=== PATIENT | female | born 1960 | race Caucasian/White ===

== ENCOUNTER 2023-12-18 21:32 | Emergency (ER) | payer SELFPAY ==
[2023-12-18] VITALS (8 sets, daily range): BP systolic 102–160; BP diastolic 72–102; PULSE 86–102; RESP 16–20; TEMP 36.5–36.6; O2SAT 92–100
--- NOTE | ~2023-12-18 | XR_ITS ---
EXAMINATION: XR elbow LT 2V DATE: 12/18/2023 21:56 INDICATION: Left elbow deformity post fall TECHNIQUE: Anteroposterior, two oblique and lateral views of the left elbow were obtained. COMPARISON: None. FINDINGS: Posterior left elbow dislocation with 15 degree varus angulation of the forearm. There is an impacted fracture at the radial neck. With 30 degree tilt of the articular surface of the radial head relativ e to the axis of the radial diaphysis. No other fractures identified. IMPRESSION: 1. Left elbow fracture dislocation. 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
--- NOTE | ~2023-12-18 | XR_ITS ---
Left elbow Technique: AP, oblique, and lateral views were obtained. Clinical History: Postreduction to COMPARISON: 12/18/2023 at 10:44 PM Findings: There is persistent complete elbow dislocation. The proximal radius are normal appearing co mpletely dislocated laterally with respect to the distal humerus. Probable impacted fracture of the r adial neck is unchanged. Impression: Persistent complete elbow dislocation, as detailed above. Impacted fracture of the proximal radial neck. Reviewed, dictated and finalized at location M. IC SUPERVISOR Impression: Persistent complete elbow dislocation, as detailed above. Impacted fracture of the proximal radial neck.
--- NOTE | ~2023-12-18 | XR_ITS ---
EXAMINATION: XR elbow LT 2V DATE: 12/18/2023 22:51 INDICATION: Status post attempted reduction of a left elbow dislocation TECHNIQUE: Anteroposterior and lateral views of the left elbow were obtained. COMPARISON: None. FINDINGS: No significant change in posterior dislocation and varus angulation of the left elbow. Also unchanged is an impacted fracture of the left radial neck. Soft tissues are unremarkable. IMPRESSION: 1. No significant change in a left elbow fracture dislocation post attempted reduction. Reviewed, dictated and finalized at location A. NCT BUSINESS INSTRUCTOR IMPRESSION: 1. No significant change in a left elbow fracture dislocation post attempted re duction.
--- NOTE | 2023-12-18 21:47 | ED.GENADULT ---
HPI - General Adult General Chief complaint: Fall <NEELIMA Porter Last Filed: 12/19/23 02:27> Stated complaint: elbow deformity <NEELIMA Porter Last Filed: 12/19/23 02:27> Time Seen by Provider: 12/18/23 21:35 <NEELIMA Porter Last Filed: 12/19/23 02:27> Source: patient <NEELIMA Porter Last Filed: 12/19/23 02:27> Mode of arrival: ambulatory <NEELIMA Porter Last Filed: 12/19/23 02:27> Limitations: no limitations <NEELIMA Porter Last Filed: 12/19/23 02:27> History of Present Illness HPI narrative: This is a 63-year-old female who presents to the ED via EMS with chief complaint left elbow injury occurring just prior to arrival. EMS noted patient to have an elbow deformity on their arrival. She reports that she was on a rolling chair and was reaching over the counter when it slid and caused her to fall to the ground. She fell onto her outstretched left hand. Denies numbness, weakness or any further sites of pain or injury. <NEELIMA Porter Last Filed: 12/19/23 02:27> Related Data Allergies/adverse reactions: Allergies Allergy/AdvReac Type Severity Reaction Status Date / Time No Known Allergies Allergy Verified 12/18/23 21:37 <NEELIMA Porter Last Filed: 12/19/23 02:27> Review of Systems Review of Systems: All systems as dictated in HPI <NEELIMA Portre Last Filed: 12/19/23 02:27> Exam Narrative: GENERAL: Well-appearing, well-nourished, and in no acute distress. HEAD: Normocephalic, atraumatic. EYES: PERRLA and EOMI. ENT: Nares clear, no rhinorrhea or epistaxis. Mucous membranes moist. Oropharynx without tonsillar hypertrophy exudate or other lesions. NECK: Supple. No adenopathy or masses. CHEST: No respiratory distress. Clear to auscultation. No wheezes rales or rhonchi HEART: Regular rate and rhythm. No murmur heard. Normal peripheral pulses. ABDOMEN: Soft, nontender, nondistended, normal active bowel sounds. MSK: Normal range of motion. No edema. SKIN: Warm, dry, no rash. NEURO: Alert and oriented x3. No focal deficits. PSYCH: Normal mood and affect. <Aditya Hernandez PA-C - Last Filed: 12/19/23 02:27> Course Vital Signs Vital signs: Vital Signs Temperature 97.9 F 12/18/23 21:33 Pulse Rate 98 12/18/23 21:33 Respiratory Rate 16 12/18/23 21:33 Blood Pressure 160/102 H 12/18/23 21:33 Pulse Oximetry 100 12/18/23 21:33 Oxygen Delivery Room Air 12/18/23 21:33 Temperature 97.8 F 12/19/23 00:05 Pulse Rate 95 12/19/23 00:05 Respiratory Rate 19 12/19/23 00:05 Blood Pressure 108/54 L 12/19/23 00:05 Pulse Oximetry 100 12/19/23 00:05 Oxygen Delivery Room Air 12/19/23 00:05 Oxygen Flow Rate 2 12/18/23 23:34 <Aditya Hernandez PA-C - Last Filed: 12/19/23 02:27> Vital Signs Temperature 97.9 F 12/18/23 21:33 Pulse Rate 98 12/18/23 21:33 Respiratory Rate 16 12/18/23 21:33 Blood Pressure 160/102 H 12/18/23 21:33 Pulse Oximetry 100 12/18/23 21:33 Oxygen Delivery Room Air 12/18/23 21:33 Temperature 97.8 F 12/19/23 00:05 Pulse Rate 95 12/19/23 00:05 Respiratory Rate 19 12/19/23 00:05 Blood Pressure 108/54 L 12/19/23 00:05 Pulse Oximetry 100 12/19/23 00:05 Oxygen Delivery Room Air 12/19/23 00:05 Oxygen Flow Rate 2 12/18/23 23:34 <Kathryn Yoon MD - Last Filed: 12/19/23 07:07> Procedures Orthopedic Joint Reduction Joint #1: Orthopedic Joint Reduction Date: 12/18/23 <Aditya Hernandez PA-C - Last Filed: 12/19/23 02:27> Orthopedic Joint Reduction Time: 23:00 <NEELIMA Porter Last Filed: 12/19/23 02:27> Joint Reduction Location: elbow (Left) <NEELIMA Porter Last Filed: 12/19/23 02:27> Analgesia: procedural sedation <NEELIMA Porter Last Filed: 12/19/23 02:27> Pre-Procedure Neuro Vascular Exam: normal <Aditya Leon
--- NOTE | 2023-12-18 22:41 | PC.NURSE ---
[address] San at 2240.
--- NOTE | 2023-12-18 23:27 | PC.NURSE ---
Addendum entered by Jessika Gavin RN 12/19/23 07:04: correction dose given at 2327. Original Note: EDP administered 40 mg of Propofol to patient at 2237 for second attempt at reduction.
--- NOTE | 2023-12-18 23:31 | PC.NURSE ---
Propofol 60 mg administered at 2330
--- NOTE | 2023-12-18 23:32 | PC.NURSE ---
NAYA San administers 20 mg of Propofol 2332 due to patient being arousable.
[2023-12-19] MEDS: SODIUM CHLORIDE 0.9% IV 1,000 ML 999 ML (00:04)
[2023-12-19 00:05] VITALS: BP 108/54; PULSE 95; RESP 19; TEMP 36.6; O2SAT 100
[2023-12-19 01:01] LABS: Basophils Absolute Auto 0.1 K/mm3 (0.0-0.1); Basophils Percent Auto 0.4 % (0.2-1.2); Eosinophils Absolute Auto 0.1 K/mm3 (0-0.3); Eosinophils Percent Auto 0.4 % (0-4.4); Hematocrit 37.7 % (37.0-47.0); Hemoglobin 12.2 g/dL (12.0-15.0); Immature Granulocyte Absolute 0.06 K/mm3 (0.00-0.031); Immature Granulocyte Percent A 0.4 % (0-0.5); Lymphocytes Absolute Auto 1.82 K/mm3 (0.9-3.2); Lymphocytes Percent Auto 13.5 % (18.3-44.2); Mean Corpuscular HGB Conc 32.4 g/dl (32-36); Mean Corpuscular Hemoglobin 30.9 pg (26-34); Mean Corpuscular Volume 95.4 fl (80-100); Mean Platelet Volume 9.2 fl (7.4-10.4); Monocytes Absolute Auto 0.8 K/mm3 (0.1-0.6); Monocytes Percent Auto 6.1 % (2.6-8.5); Neutrophils Absolute Auto 10.7 K/mm3 (1.3-6.7); Neutrophils Percent Auto 79.2 % (45.5-73.1); Platelet Count Result 312 k/mm3 (150-375); Red Blood Count 3.95 M/mm3 (4.2-5.4); Red Cell Distribution Width 12.8 % (11.5-14.5); White Blood Count 13.5 K/mm3 (4.5-10.0)
[2023-12-19 01:12] LABS: INR 0.9; Partial Thromboplastin Time 24.7 SECONDS (22.3-36.8); Prothrombin Time 12.1 Seconds (11.1-14.7)
[2023-12-19 01:15] LABS: Alanine Aminotransferase 25 U/L (6-35); Albumin Level 3.9 g/dL (3.5-5.1); Alkaline Phosphatase 87 U/L (38-126); Anion Gap 10 mmol/L (8-16); Aspartate Amino Transferase 34 U/L (14-36); Bilirubin,Total 0.3 mg/dL (0.2-1.3); Blood Urea Nitrogen 22 mg/dL (7-17); Calcium 8.6 mg/dL (8.4-10.2); Carbon Dioxide 23 mmol/L (22-30); Chloride 104 mmol/L (98-107); Estimated CRCL calculation 56 ml/min; Estimated Glomerular Filt Rate > 60; Glucose 97 mg/dL (65-110); Potassium 4.1 mmol/L (3.4-5.0); Sodium 137 mmol/L (137-145)
[2023-12-19] MEDS: MORPHINE SULFATE (*CRX) 4 MG/ML INJ IV PUSH (01:36)
[2023-12-19] MEDS: SODIUM CHLORIDE 0.9% IV 1,000 ML 999 ML IV CONT (01:48)
== END 2023-12-19 02:08 | disposition short-term general hospital (02) ==
PROVIDERS: Emergency Provider Physician Assistant
DX: S52.132A Displaced fracture of neck of left radius, initial encounter for closed fracture (principal); W07.XXXA Fall from chair, initial encounter
CPT/HCPCS: 24565; 24655; 36415; 73070; 80053; 85025; 85610; 85730; 96374; 99285; A4565; J2270; J7030